=== PATIENT | female | born 1955 | race Hispanic/Latino ===

== ENCOUNTER 2019-08-30 12:36 | Emergency (ER) | payer MEDICARE ==
[2019-08-30] MEDS ORDERED: ASPIRIN 325 MG TABLET ONE (13:34)
[2019-08-30 13:54] LABS: APPEARANCE,URINE Clear (CLEAR); BILIRUBIN,URINE Negative (NEGATIVE); COLOR,URINE Yellow (YELLOW); GLUCOSE, URINE (UA) Negative (NEGATIVE); KETONES,URINE 15 mg/dL (NEGATIVE); LEUKOCYTE ESTERASE ,URINE Trace (NEGATIVE); NITRATE,URINE Negative (NEGATIVE); OCCULT BLOOD,URINE Nonhemolyzed Trace (NEGATIVE); PH,URINE 6.5 (5.0-8.0); PROTEIN,URINE Negative (NEGATIVE); UROBILINOGEN,URINE 0.2 mg/dL (0.2-1.0)
[2019-08-30 13:54] LABS: BASOPHILS % (AUTO) 0.2 % (0.0-5.0); EOSINOPHILS % (AUTO) 0.5 % (0.0-8.0); LYMPHOCYTES % (AUTO) 16.5 % (21.0-51.0); MEAN CORPUSCULAR HEMOGLOBIN 30.1 pg (27.0-33.0); MEAN CORPUSCULAR HGB CONC 34.1 g/dL (32.0-36.0); MEAN CORPUSCULAR VOLUME 88.2 fL (79-99); MONOCYTES % (AUTO) 6.7 % (3.0-13.0); NEUTROPHILS % (AUTO) 75.8 % (40.0-77.0); PLATELET COUNT (AUTO) 218 K/uL (130-400); RED BLOOD CELL COUNT(AUTO) 4.42 MIL/uL (4.00-5.50); RED CELL DISTRIBUTION WIDTH 12.4 % (11.0-15.5); WHITE BLOOD COUNT (AUTO) 6.4 K/uL (4.8-10.8)
[2019-08-30 14:01] LABS: CREATININE 0.4 mg/dL (0.5-1.5); POTASSIUM 4.3 mmol/L (3.5-5.1)
[2019-08-30 14:06] LABS: INR 0.95 (0.85-1.15); PARTIAL THROMBOPLASTIN TIME 24.4 SEC (26.3-35.5)
[2019-08-30 14:07] LABS: ALBUMIN 3.7 g/dL (3.5-5.0); BILIRUBIN,TOTAL 0.6 mg/dL (0.2-1.0); TOTAL PROTEIN, SERUM 7.2 g/dL (6.0-8.3)
[2019-08-30 14:17] LABS: BACTERIA,URINE Few /HPF (None Seen); MUCUS,URINE Few LPF (None Seen); SQUAMOUS EPITHELIAL CELL,UR Few /HPF (0-2)
[2019-08-30] MEDS ORDERED: SUCRALFATE 1 GM TABLET ONE (14:53)
[2019-08-30] MEDS ORDERED: FAMOTIDINE 20MG TAB 20 MG TAB ONE (14:53)
[2019-08-30] MEDS ORDERED: MAG HYDROX/AL HYDROX/SIMETH ES 30 ML SUSP UDCUP ONE (15:36)
[2019-08-30] MEDS ORDERED: LIDOCAINE HCL 2% VISCOUS 15 ML UDCUP ONE (15:36)
== END 2019-08-30 16:13 | disposition home or self-care (01) ==
LOC: EDH 12:36
DX: K29.70 Gastritis, unspecified, without bleeding (principal); E11.9 Type 2 diabetes mellitus without complications; I10 Essential (primary) hypertension; Z98.890 Other specified postprocedural states
CPT/HCPCS: 36415; 71045; 80053; 81001; 82550; 83690; 84484; 85025; 85610; 85730; 93005

== ENCOUNTER 2023-06-01 21:05 | Inpatient (IN) | payer MEDICARE, OTHER ==
[~2023-06-01] VITALS: Ht 154.9 cm; Wt 80.6 kg
[2023-06-01 21:36] LABS: BASOPHILS # (AUTO) 0.01 K/uL (0.00-0.20); BASOPHILS % (AUTO) 0.1 % (0.0-5.0); EOSINOPHILS # (AUTO) 0.13 K/uL (0.00-0.70); EOSINOPHILS % (AUTO) 1.8 % (0.0-8.0); HEMATOCRIT 38.6 % (36-48); IMMATURE GRANULOCYTE ABSOLUTE 0.03 K/uL (0-1); LYMPHOCYTES # (AUTO) 1.8 K/uL (1.0-4.8); LYMPHOCYTES % (AUTO) 24.9 % (21.0-51.0); MEAN CORPUSCULAR HEMOGLOBIN 30.1 pg (27.0-33.0); MEAN CORPUSCULAR HGB CONC 32.9 g/dL (32.0-36.0); MEAN CORPUSCULAR VOLUME 91.5 fL (79-99); MONOCYTES # (AUTO) 0.8 K/uL (0.1-1.0); MONOCYTES % (AUTO) 10.4 % (3.0-13.0); NEUTROPHILS # (AUTO) 4.5 K/uL (1.8-7.7); NEUTROPHILS % (AUTO) 62.4 % (40.0-77.0); PLATELET COUNT (AUTO) 391 K/uL (130-400); RED BLOOD CELL COUNT(AUTO) 4.22 MIL/uL (4.00-5.50); WHITE BLOOD COUNT (AUTO) 7.2 K/uL (4.8-10.8)
[2023-06-01 21:41] LABS: APPEARANCE,URINE CLEAR (CLEAR); BILIRUBIN,URINE NEGATIVE (NEGATIVE); COLOR,URINE YELLOW (YELLOW); GLUCOSE, URINE (UA) NEGATIVE (NEGATIVE); KETONES,URINE NEGATIVE (NEGATIVE); LEUKOCYTE ESTERASE ,URINE TRACE Leu/uL (NEGATIVE); NITRATE,URINE NEGATIVE (NEGATIVE); OCCULT BLOOD,URINE TRACE-INTACT (NEGATIVE); PROTEIN,URINE 30 mg/dL (NEGATIVE); UROBILINOGEN,URINE 0.2 mg/dL (0.2-1.0)
[2023-06-01 21:51] LABS: CREATININE 0.8 mg/dL (0.5-1.5); POTASSIUM 3.9 mmol/L (3.5-5.1)
[2023-06-01 21:52] LABS: SARS-CoV-2, RNA, NAAT NEGATIVE SARS CoV-2 (NEGATIVE)
[2023-06-01 21:52] LABS: ADD UA MICROSCOPIC YES
[2023-06-01 21:53] LABS: BACTERIA,URINE MOD /HPF (None Seen); MUCUS,URINE MANY LPF (None Seen); SQUAMOUS EPITHELIAL CELL,UR FEW /HPF (0-2); WBC,URINE 51-100 /HPF (0-1)
[2023-06-01 21:56] LABS: INFLUENZA TYPE A Negative For Type A (NEGATIVE); INFLUENZA TYPE B Negative For Type B (NEGATIVE)
[2023-06-01 22:00] LABS: ALBUMIN 2.7 g/dL (3.5-5.0); BILIRUBIN,TOTAL 0.3 mg/dL (0.2-1.0); TOTAL PROTEIN, SERUM 6.4 g/dL (6.0-8.3)
[2023-06-01] MEDS ORDERED: IOHEXOL 350 MG/ML 100ML INFUS..BTL IV ONE (22:11)
[2023-06-01 22:13] LABS: B-TYPE NATRIURETIC PEPTIDE 8 pg/mL (0-100)
[2023-06-01] MEDS ORDERED: CEFTRIAXONE 1G VIAL ONE (22:22)
[2023-06-01] MEDS ORDERED: CEFTRIAXONE 1G VIAL IVPB ONE (22:30)
[2023-06-02] MEDS ORDERED: GLUCAGON 1MG KIT 1 MG ML IM PRN (02:30)
[2023-06-02] MEDS ORDERED: MAGNESIUM 2GM PREMIX 50ML 50 ML IV PRN (02:30)
[2023-06-02] MEDS: CEFTRIAXONE 1G VIAL IVPB SCH (02:30)
[2023-06-02] MEDS ORDERED: POTASSIUM CHLORIDE 20MEQ/100ML 100 ML IV PRN (02:30)
[2023-06-02] MEDS ORDERED: DEXTROSE 50%-WATER 50 ML DISP.SYRIN IV PRN (02:30)
[2023-06-02] MEDS ORDERED: ONDANSETRON 4MG INJ IV PRN (02:30)
[2023-06-02] MEDS ORDERED: LACTATED RINGERS 1000ML 1,000 ML IV SCH (02:30)
[2023-06-02] MEDS ORDERED: ACETAMINOPHEN 325 MG TAB PO PRN ×2 (02:30)
[2023-06-02] MEDS: INSULIN HUMULIN R 100 UNIT/ML 3ML SQ SCH ×4 (07:30→21:00)
[2023-06-02 07:56] LABS: BASOPHILS # (AUTO) 0.02 K/uL (0.00-0.20); BASOPHILS % (AUTO) 0.3 % (0.0-5.0); EOSINOPHILS # (AUTO) 0.08 K/uL (0.00-0.70); EOSINOPHILS % (AUTO) 1.2 % (0.0-8.0); HEMATOCRIT 38.7 % (36-48); IMMATURE GRANULOCYTE ABSOLUTE 0.03 K/uL (0-1); LYMPHOCYTES # (AUTO) 1.5 K/uL (1.0-4.8); LYMPHOCYTES % (AUTO) 21.8 % (21.0-51.0); MEAN CORPUSCULAR HEMOGLOBIN 29.8 pg (27.0-33.0); MEAN CORPUSCULAR HGB CONC 32.3 g/dL (32.0-36.0); MEAN CORPUSCULAR VOLUME 92.4 fL (79-99); MONOCYTES # (AUTO) 0.7 K/uL (0.1-1.0); MONOCYTES % (AUTO) 10.8 % (3.0-13.0); NEUTROPHILS # (AUTO) 4.4 K/uL (1.8-7.7); NEUTROPHILS % (AUTO) 65.4 % (40.0-77.0); PLATELET COUNT (AUTO) 386 K/uL (130-400); RED BLOOD CELL COUNT(AUTO) 4.19 MIL/uL (4.00-5.50); RED CELL DISTRIBUTION WIDTH 13.1 % (11.0-15.5); WHITE BLOOD COUNT (AUTO) 6.7 K/uL (4.8-10.8)
[2023-06-02 08:11] LABS: INR < 0.93 (0.85-1.15); PROTHROMBIN TIME 10.8 SEC (9.6-11.6)
[2023-06-02 08:12] LABS: PARTIAL THROMBOPLASTIN TIME 26.2 SEC (26.3-35.5)
[2023-06-02 08:14] LABS: ALBUMIN 2.6 g/dL (3.5-5.0); BILIRUBIN,DIRECT 0.1 mg/dL (0.0-0.3); BILIRUBIN,TOTAL 0.3 mg/dL (0.2-1.0); CREATININE 0.7 mg/dL (0.5-1.5); MAGNESIUM 1.8 mg/dL (1.80-2.40); POTASSIUM 4.5 mmol/L (3.5-5.1); TOTAL PROTEIN, SERUM 6.3 g/dL (6.0-8.3)
[2023-06-02] MEDS: FAMOTIDINE 20MG VIAL IV SCH ×2 (10:18→23:29)
[2023-06-02] MEDS ORDERED: MAGNESIUM 2GM PREMIX 50ML 50 ML IV SCH (11:00)
[2023-06-02] MEDS: FUROSEMIDE 20MG VIAL IV SCH ×2 (13:55→23:40)
[2023-06-02] MEDS ORDERED: LOSARTAN 50 MG TABLET PO SCH (16:00)
[2023-06-02] MEDS ORDERED: DICL50TA7 PO (16:43)
[2023-06-02] MEDS ORDERED: ATOR10 PO (16:43)
[2023-06-02] MEDS ORDERED: METF-444 PO (16:48)
[2023-06-02] MEDS ORDERED: OLME-9 PO (16:48)
[2023-06-02] MEDS ORDERED: HYDRALAZINE 20MG/ML VIAL IV PRN (19:00)
[2023-06-02 19:55] LABS: CREATININE 0.8 mg/dL (0.5-1.5); MAGNESIUM 1.8 mg/dL (1.80-2.40); POTASSIUM 4.1 mmol/L (3.5-5.1)
[2023-06-02] MEDS: ATORVASTATIN 10 MG TABLET PO SCH (23:29)
[2023-06-03] VITALS (14 sets, daily range): BP systolic 83–128; BP diastolic 45–78; PULSE 90–109; RESP 18–20; O2SAT 94–97
[2023-06-03] MEDS: CEFTRIAXONE 1G VIAL IVPB SCH (04:11)
[2023-06-03] MEDS: INSULIN HUMULIN R 100 UNIT/ML 3ML SQ SCH ×4 (07:28→20:34)
[2023-06-03] MEDS: FAMOTIDINE 20MG VIAL IV SCH ×2 (08:44→20:33)
[2023-06-03] MEDS ORDERED: HYDROCHLOROTHIAZIDE 25 MG TABLET PO SCH (09:00)
[2023-06-03] MEDS ORDERED: LOSARTAN 100 MG TABLET PO SCH (09:00)
[2023-06-03 09:50] LABS: BASOPHILS # (AUTO) 0.02 K/uL (0.00-0.20); BASOPHILS % (AUTO) 0.3 % (0.0-5.0); EOSINOPHILS # (AUTO) 0.06 K/uL (0.00-0.70); HEMATOCRIT 39.2 % (36-48); IMMATURE GRANULOCYTE ABSOLUTE 0.01 K/uL (0-1); LYMPHOCYTES # (AUTO) 1.2 K/uL (1.0-4.8); LYMPHOCYTES % (AUTO) 19.9 % (21.0-51.0); MEAN CORPUSCULAR HGB CONC 32.9 g/dL (32.0-36.0); MEAN CORPUSCULAR VOLUME 91.2 fL (79-99); MONOCYTES # (AUTO) 0.6 K/uL (0.1-1.0); MONOCYTES % (AUTO) 9.1 % (3.0-13.0); NEUTROPHILS # (AUTO) 4.3 K/uL (1.8-7.7); NEUTROPHILS % (AUTO) 69.5 % (40.0-77.0); PLATELET COUNT (AUTO) 464 K/uL (130-400); RED CELL DISTRIBUTION WIDTH 13.2 % (11.0-15.5); WHITE BLOOD COUNT (AUTO) 6.2 K/uL (4.8-10.8)
[2023-06-03 10:02] LABS: INR 0.97 (0.85-1.15); PROTHROMBIN TIME 11.3 SEC (9.6-11.6)
[2023-06-03 10:04] LABS: PARTIAL THROMBOPLASTIN TIME 27.1 SEC (26.3-35.5)
[2023-06-03 10:06] LABS: ALBUMIN 2.7 g/dL (3.5-5.0); BILIRUBIN,TOTAL 0.5 mg/dL (0.2-1.0); CREATININE 0.9 mg/dL (0.5-1.5); MAGNESIUM 1.8 mg/dL (1.80-2.40); POTASSIUM 4.1 mmol/L (3.5-5.1); TOTAL PROTEIN, SERUM 6.3 g/dL (6.0-8.3)
[2023-06-03] MEDS ORDERED: HYDROMORPHONE PCA 10 MG/50 ML 50 ML IV PRN (11:00)
[2023-06-03] MEDS ORDERED: DiphenhydrAMINE HCL 50 MG/ML VIAL IM PRN (11:00)
[2023-06-03] MEDS ORDERED: DIPHENOXYLATE HCL/ATROPINE 2.5/0.025 MG TAB PO PRN (11:00)
[2023-06-03] MEDS ORDERED: MAG/ALUM/SIMETH 30 ML UDCUP PO PRN (11:00)
[2023-06-03] MEDS ORDERED: DIPHENHYDRAMINE HCL 25 MG CAPSULE PO SCH (11:00)
[2023-06-03] MEDS ORDERED: ACETAMINOPHEN 325 MG TAB PO PRN ×2 (11:00)
[2023-06-03] MEDS ORDERED: LACTULOSE 20 GM/30 ML UDCUP PO PRN (11:00)
[2023-06-03] MEDS ORDERED: ACETAMINOPHEN 325 MG TAB PO SCH (11:00)
[2023-06-03] MEDS ORDERED: BENZOCAINE/MENTH/CETYLPYRD CL 1 EACH LOZENGE MM PRN (11:00)
[2023-06-03] MEDS ORDERED: DIPHENHYDRAMINE HCL 25 MG CAPSULE PO PRN (11:00)
[2023-06-03] MEDS ORDERED: ONDANSETRON 4MG INJ IVP PRN (11:00)
[2023-06-03] MEDS ORDERED: TRAMADOL HCL 50 MG TABLET PO PRN (11:00)
[2023-06-03 12:25] LABS: ALBUMIN,BODY FLUID 2.3 g/dL; AMYLASE,BODY FLUID 22 U/L; TOTAL BILIRUBIN, BODY FLUID 0.9 mg/dL; TOTAL PROTEIN,BODY FLUID 4.1 g/dL; TRIGLYCERIDES,BODY FLUID 43 mg/dL
[2023-06-03 12:32] LABS: BODY FLUID RBC 21636 /cu. mm.; BODY FLUID WBC 551 /cu. mm.
[2023-06-03 13:06] LABS: APPEARANCE BODY FLUID TURBID (CLEAR); COLOR,BODY FLUID ORANGE (LT YELLOW); SPECIMENTYPE,BODY FLUID ASCITES; TOTAL VOLUME,BODY FLUID 1500 mL
[2023-06-03 13:18] LABS: BF LYMPHOCYTE 28 %; BF MACROPHAGE 40; BF OTHER CELLS 12; BF TOTAL CELLS COUNTED 100
[2023-06-03] MEDS ORDERED: WARFARIN SODIUM 1 MG TAB PO SCH (17:00)
[2023-06-03] MEDS: ATORVASTATIN 10 MG TABLET PO SCH (20:33)
[2023-06-03] MEDS ORDERED: MORPHINE 2 MG SYG IVP ONE (23:00)
[2023-06-04] VITALS (82 sets, daily range): BP systolic 76–131; BP diastolic 39–85; PULSE 77–103; RESP 10–40; O2SAT 94–97
[2023-06-04] MEDS: CEFTRIAXONE 2GM VIAL IVPB SCH ×2 (03:50→23:34)
[2023-06-04] MEDS: NOREPINEPHRIN 4MG/NS 250ML 250 ML IV SCH ×2 (03:53→13:03)
[2023-06-04 05:46] LABS: BASOPHILS # (AUTO) 0.01 K/uL (0.00-0.20); BASOPHILS % (AUTO) 0.2 % (0.0-5.0); EOSINOPHILS # (AUTO) 0.07 K/uL (0.00-0.70); EOSINOPHILS % (AUTO) 1.2 % (0.0-8.0); HEMATOCRIT 32.8 % (36-48); IMMATURE GRANULOCYTE ABSOLUTE 0.02 K/uL (0-1); LYMPHOCYTES # (AUTO) 1.3 K/uL (1.0-4.8); MEAN CORPUSCULAR HEMOGLOBIN 30.3 pg (27.0-33.0); MEAN CORPUSCULAR HGB CONC 32.9 g/dL (32.0-36.0); MEAN CORPUSCULAR VOLUME 91.9 fL (79-99); MONOCYTES # (AUTO) 0.6 K/uL (0.1-1.0); MONOCYTES % (AUTO) 10.1 % (3.0-13.0); NEUTROPHILS # (AUTO) 3.7 K/uL (1.8-7.7); NEUTROPHILS % (AUTO) 65.2 % (40.0-77.0); PLATELET COUNT (AUTO) 391 K/uL (130-400); RED BLOOD CELL COUNT(AUTO) 3.57 MIL/uL (4.00-5.50); WHITE BLOOD COUNT (AUTO) 5.7 K/uL (4.8-10.8)
[2023-06-04 05:52] LABS: CREATININE 0.9 mg/dL (0.5-1.5); MAGNESIUM 2.1 mg/dL (1.80-2.40); POTASSIUM 3.9 mmol/L (3.5-5.1)
[2023-06-04] MEDS: INSULIN HUMULIN R 100 UNIT/ML 3ML SQ SCH ×4 (06:17→21:00)
[2023-06-04] MEDS ORDERED: ACETAMINOPHEN 325 MG TAB ONE (06:41)
[2023-06-04] MEDS: ACETAMINOPHEN 325 MG TAB PO PRN ×2 (07:16→23:33)
[2023-06-04] MEDS: FAMOTIDINE 20MG VIAL IV SCH ×2 (08:16→20:42)
[2023-06-04 11:43] LABS: INR 0.94 (0.85-1.15); PROTHROMBIN TIME 10.9 SEC (9.6-11.6)
[2023-06-04 13:34] LABS: ABG BASE EXCESS -0.5 mmol/L (-2.0-3.0); ABG HCO3 22.7 mmol/L (21.0-28.0); ABG PCO2 33 mmHg (32-45); ABG PH 7.456 (7.35-7.450); CARBON MONOXIDE 0.7; DEVICE COMMENT RR, BRIZA,RN; PO2, ARTERIAL BG 90.5 mmHg (83.0-108.0); VENT MODE, BG RA (ROOM AIR)
[2023-06-04] MEDS: ALBUMIN (HUMAN) 25% 200 ML IV SCH ×2 (15:09→20:42)
[2023-06-04] MEDS: ATORVASTATIN 10 MG TABLET PO SCH (20:42)
[2023-06-05] VITALS (10 sets, daily range): BP systolic 93–109; BP diastolic 53–67; PULSE 83–99; RESP 13–23; O2SAT 95–96
[2023-06-05 04:12] LABS: BASOPHILS # (AUTO) 0.01 K/uL (0.00-0.20); BASOPHILS % (AUTO) 0.2 % (0.0-5.0); EOSINOPHILS # (AUTO) 0.09 K/uL (0.00-0.70); EOSINOPHILS % (AUTO) 2.2 % (0.0-8.0); HEMATOCRIT 28.5 % (36-48); IMMATURE GRANULOCYTE ABSOLUTE 0.01 K/uL (0-1); LYMPHOCYTES # (AUTO) 0.9 K/uL (1.0-4.8); LYMPHOCYTES % (AUTO) 22.4 % (21.0-51.0); MEAN CORPUSCULAR HEMOGLOBIN 30.1 pg (27.0-33.0); MEAN CORPUSCULAR HGB CONC 32.6 g/dL (32.0-36.0); MEAN CORPUSCULAR VOLUME 92.2 fL (79-99); MONOCYTES # (AUTO) 0.5 K/uL (0.1-1.0); NEUTROPHILS # (AUTO) 2.6 K/uL (1.8-7.7); PLATELET COUNT (AUTO) 282 K/uL (130-400); RED BLOOD CELL COUNT(AUTO) 3.09 MIL/uL (4.00-5.50); RED CELL DISTRIBUTION WIDTH 13.1 % (11.0-15.5); WHITE BLOOD COUNT (AUTO) 4.2 K/uL (4.8-10.8)
[2023-06-05 04:18] LABS: CREATININE 0.8 mg/dL (0.5-1.5); MAGNESIUM 2.1 mg/dL (1.80-2.40); POTASSIUM 3.5 mmol/L (3.5-5.1)
[2023-06-05] MEDS ORDERED: POTASSIUM CHLORIDE 10% ELIXIR 20 MEQ/15 ML UDCUP PO PRN ×2 (06:30→07:30)
[2023-06-05] MEDS ORDERED: KCL 20 MEQ ERTAB PO PRN ×2 (06:30→07:30)
[2023-06-05] MEDS: INSULIN HUMULIN R 100 UNIT/ML 3ML SQ SCH ×4 (06:48→21:00)
[2023-06-05] MEDS ORDERED: POTASSIUM CHLORIDE 20MEQ/100ML 100 ML IV PRN (07:30)
[2023-06-05] MEDS: FAMOTIDINE 20MG VIAL IV SCH ×2 (09:10→21:01)
[2023-06-05] MEDS: ACETAMINOPHEN 325 MG TAB PO PRN (16:10)
[2023-06-05] MEDS: ATORVASTATIN 10 MG TABLET PO SCH (21:01)
[2023-06-06] VITALS (10 sets, daily range): BP systolic 86–133; BP diastolic 49–73; PULSE 90–104; RESP 14–18; O2SAT 95–96
[2023-06-06] MEDS: CEFTRIAXONE 2GM VIAL IVPB SCH (01:54)
[2023-06-06 05:17] LABS: HEMATOCRIT 34.9 % (36-48); MEAN CORPUSCULAR HEMOGLOBIN 30.2 pg (27.0-33.0); MEAN CORPUSCULAR HGB CONC 32.1 g/dL (32.0-36.0); MEAN CORPUSCULAR VOLUME 94.1 fL (79-99); RED BLOOD CELL COUNT(AUTO) 3.71 MIL/uL (4.00-5.50); WHITE BLOOD COUNT (AUTO) 6.5 K/uL (4.8-10.8)
[2023-06-06 05:31] LABS: ALBUMIN 3.1 g/dL (3.5-5.0); BILIRUBIN,TOTAL 0.5 mg/dL (0.2-1.0); CREATININE 0.8 mg/dL (0.5-1.5); MAGNESIUM 2.1 mg/dL (1.80-2.40); TOTAL PROTEIN, SERUM 5.9 g/dL (6.0-8.3)
[2023-06-06] MEDS: INSULIN HUMULIN R 100 UNIT/ML 3ML SQ SCH ×4 (05:52→21:13)
[2023-06-06] MEDS: FAMOTIDINE 20MG VIAL IV SCH ×2 (08:20→21:11)
[2023-06-06] MEDS: ACETAMINOPHEN 325 MG TAB PO PRN ×2 (14:25→21:12)
[2023-06-06] MEDS: ATORVASTATIN 10 MG TABLET PO SCH (21:11)
[2023-06-07] MEDS: CEFTRIAXONE 2GM VIAL IVPB SCH (00:27)
[2023-06-07 00:35] VITALS: BP 93/65; PULSE 91; RESP 18
[2023-06-07 03:58] VITALS: BP 107/62; PULSE 92; RESP 17
[2023-06-07 05:24] LABS: BASOPHILS # (AUTO) 0.01 K/uL (0.00-0.20); BASOPHILS % (AUTO) 0.1 % (0.0-5.0); EOSINOPHILS % (AUTO) 1.4 % (0.0-8.0); HEMATOCRIT 35.2 % (36-48); IMMATURE GRANULOCYTE ABSOLUTE 0.03 K/uL (0-1); LYMPHOCYTES # (AUTO) 1.4 K/uL (1.0-4.8); LYMPHOCYTES % (AUTO) 19.7 % (21.0-51.0); MEAN CORPUSCULAR HEMOGLOBIN 30.2 pg (27.0-33.0); MEAN CORPUSCULAR HGB CONC 31.8 g/dL (32.0-36.0); MEAN CORPUSCULAR VOLUME 94.9 fL (79-99); MONOCYTES # (AUTO) 0.7 K/uL (0.1-1.0); MONOCYTES % (AUTO) 10.5 % (3.0-13.0); NEUTROPHILS # (AUTO) 4.8 K/uL (1.8-7.7); NEUTROPHILS % (AUTO) 67.9 % (40.0-77.0); PLATELET COUNT (AUTO) 388 K/uL (130-400); RED BLOOD CELL COUNT(AUTO) 3.71 MIL/uL (4.00-5.50); WHITE BLOOD COUNT (AUTO) 7.1 K/uL (4.8-10.8)
[2023-06-07] MEDS: INSULIN HUMULIN R 100 UNIT/ML 3ML SQ SCH ×4 (05:56→21:35)
[2023-06-07 06:11] LABS: BILIRUBIN,TOTAL 0.4 mg/dL (0.2-1.0); CREATININE 1.4 mg/dL (0.5-1.5); MAGNESIUM 2.1 mg/dL (1.80-2.40); PHOSPHORUS 4.3 mg/dL (2.5-4.9)
[2023-06-07 08:00] VITALS: BP 96/63; PULSE 97; RESP 20; O2SAT 98
[2023-06-07] MEDS: ACETAMINOPHEN 325 MG TAB PO PRN (09:06)
[2023-06-07] MEDS: FAMOTIDINE 20MG TAB PO SCH ×2 (09:06→19:44)
[2023-06-07] MEDS: LEVOFLOXACIN 500 MG TABLET PO SCH (09:07)
[2023-06-07 12:00] VITALS: BP 105/69; PULSE 101; RESP 20
[2023-06-07] MEDS ORDERED: LACTULOSE 20 GM/30 ML UDCUP PO PRN (14:30)
[2023-06-07 15:17] LABS: MEAN CORPUSCULAR HEMOGLOBIN 29.8 pg (27.0-33.0); MEAN CORPUSCULAR VOLUME 93.1 fL (79-99); RED BLOOD CELL COUNT(AUTO) 3.76 MIL/uL (4.00-5.50); RED CELL DISTRIBUTION WIDTH 13.1 % (11.0-15.5); WHITE BLOOD COUNT (AUTO) 6.8 K/uL (4.8-10.8)
[2023-06-07] MEDS: FUROSEMIDE 20MG VIAL IV SCH (15:32)
[2023-06-07 16:00] VITALS: BP 100/64; PULSE 104; RESP 20
[2023-06-07] MEDS: DOCUSATE SODIUM 100 MG CAP PO SCH (19:44)
[2023-06-07] MEDS: ATORVASTATIN 10 MG TABLET PO SCH (19:44)
[2023-06-07 20:00] VITALS: BP 114/52; PULSE 117; RESP 20
[2023-06-08] VITALS (7 sets, daily range): BP systolic 90–118; BP diastolic 50–65; PULSE 95–109; RESP 16–20; O2SAT 98
[2023-06-08] MEDS: CEFTRIAXONE 2GM VIAL IVPB SCH (00:54)
[2023-06-08] MEDS: FUROSEMIDE 20MG VIAL IV SCH ×2 (01:32→14:36)
[2023-06-08 04:53] LABS: ALBUMIN 2.7 g/dL (3.5-5.0); BILIRUBIN,TOTAL 0.2 mg/dL (0.2-1.0); CREATININE 1.8 mg/dL (0.5-1.5); MAGNESIUM 2.1 mg/dL (1.80-2.40); POTASSIUM 4.4 mmol/L (3.5-5.1); TOTAL PROTEIN, SERUM 6.1 g/dL (6.0-8.3)
[2023-06-08] MEDS: INSULIN HUMULIN R 100 UNIT/ML 3ML SQ SCH ×3 (06:52→20:53)
[2023-06-08] MEDS: DOCUSATE SODIUM 100 MG CAP PO SCH ×2 (09:00→20:56)
[2023-06-08] MEDS: FAMOTIDINE 20MG TAB PO SCH ×2 (09:00→20:56)
[2023-06-08] MEDS: LEVOFLOXACIN 500 MG TABLET PO SCH (09:00)
[2023-06-08] MEDS ORDERED: BISACODYL 10 MG SUPP.RECT RC ONE (10:00)
[2023-06-08] MEDS: ACETAMINOPHEN 325 MG TAB PO PRN (13:37)
[2023-06-08] MEDS: ATORVASTATIN 10 MG TABLET PO SCH (20:56)
[2023-06-09] VITALS (7 sets, daily range): BP systolic 88–107; BP diastolic 51–77; PULSE 95–112; RESP 17–20; O2SAT 95
[2023-06-09] MEDS: CEFTRIAXONE 2GM VIAL IVPB SCH ×2 (00:07→23:55)
[2023-06-09] MEDS: FUROSEMIDE 20MG VIAL IV SCH ×2 (00:44→14:26)
[2023-06-09] MEDS: INSULIN HUMULIN R 100 UNIT/ML 3ML SQ SCH ×4 (06:45→21:00)
[2023-06-09] MEDS: DOCUSATE SODIUM 100 MG CAP PO SCH ×2 (09:07→20:17)
[2023-06-09] MEDS: FAMOTIDINE 20MG TAB PO SCH ×2 (09:08→20:17)
[2023-06-09] MEDS: LEVOFLOXACIN 500 MG TABLET PO SCH (09:08)
[2023-06-09 11:01] LABS: HEMATOCRIT 36.3 % (36-48); MEAN CORPUSCULAR HEMOGLOBIN 29.9 pg (27.0-33.0); MEAN CORPUSCULAR HGB CONC 32.5 g/dL (32.0-36.0); MEAN CORPUSCULAR VOLUME 92.1 fL (79-99); RED BLOOD CELL COUNT(AUTO) 3.94 MIL/uL (4.00-5.50); RED CELL DISTRIBUTION WIDTH 13.1 % (11.0-15.5); WHITE BLOOD COUNT (AUTO) 7.2 K/uL (4.8-10.8)
[2023-06-09 11:12] LABS: CREATININE 2.2 mg/dL (0.5-1.5); POTASSIUM 4.2 mmol/L (3.5-5.1)
[2023-06-09] MEDS: MIDODRINE HCL 5 MG TABLET PO SCH ×2 (14:26→20:17)
[2023-06-09] MEDS: ATORVASTATIN 10 MG TABLET PO SCH (20:17)
[2023-06-09 23:00] LABS: COLLECTION PERIOD,URINE 24 HR; CREATININE,SERUM FOR CRCL 2.2 mg/dL (0.6-1.3); TOTAL VOLUME 24HRS,URINE 140 mL
[2023-06-09 23:01] LABS: TPROTEIN TIMED,URINE 53 mg/dL; TPROTEIN U,24HR CALC 74 mg/24HR (0-165)
[2023-06-09 23:02] LABS: CREATININE,URINE RANDOM 346 mg/dL (30-135); SODIUM,URINE RANDOM < 14 mmol/l (40-220)
[2023-06-10] VITALS (16 sets, daily range): BP systolic 83–102; BP diastolic 48–66; PULSE 83–105; RESP 16–19; O2SAT 93–94
[2023-06-10] MEDS: FUROSEMIDE 20MG VIAL IV SCH (02:03)
[2023-06-10 04:58] LABS: HEMATOCRIT 34.1 % (36-48); MEAN CORPUSCULAR VOLUME 93.9 fL (79-99); RED BLOOD CELL COUNT(AUTO) 3.63 MIL/uL (4.00-5.50); WHITE BLOOD COUNT (AUTO) 7.5 K/uL (4.8-10.8)
[2023-06-10 05:12] LABS: CREATININE 2.4 mg/dL (0.5-1.5); POTASSIUM 4.9 mmol/L (3.5-5.1)
[2023-06-10] MEDS: INSULIN HUMULIN R 100 UNIT/ML 3ML SQ SCH ×4 (06:32→20:20)
[2023-06-10] MEDS: FAMOTIDINE 20MG TAB PO SCH ×2 (09:00→20:20)
[2023-06-10] MEDS: DOCUSATE SODIUM 100 MG CAP PO SCH ×2 (09:00→20:20)
[2023-06-10] MEDS ORDERED: ALBUMIN (HUMAN) 25% 200 ML IV SCH (10:00)
[2023-06-10] MEDS: LEVOFLOXACIN 500 MG TABLET PO SCH (11:25)
[2023-06-10 14:37] LABS: SPECIMENTYPE,BODY FLUID ASCITES
[2023-06-10 14:38] LABS: APPEARANCE BODY FLUID CLOUDY (CLEAR); COLOR,BODY FLUID ORANGE (LT YELLOW); TOTAL VOLUME,BODY FLUID 4300 mL
[2023-06-10 14:55] LABS: BODY FLUID RBC 23682 /cu. mm.; BODY FLUID WBC 683 /cu. mm.
[2023-06-10] MEDS: MIDODRINE HCL 5 MG TABLET PO SCH ×2 (15:17→20:20)
[2023-06-10 15:48] LABS: BF LYMPHOCYTE 18 %; BF MACROPHAGE 50; BF MONOCYTE 1 %; BF OTHER CELLS 18; BF TOTAL CELLS COUNTED 100
[2023-06-10] MEDS: ATORVASTATIN 10 MG TABLET PO SCH (20:19)
[2023-06-11] MEDS: CEFTRIAXONE 2GM VIAL IVPB SCH (00:22)
[2023-06-11 03:00] VITALS: BP 103/57; PULSE 89; RESP 18
[2023-06-11] MEDS: INSULIN HUMULIN R 100 UNIT/ML 3ML SQ SCH ×2 (05:47→11:30)
[2023-06-11 06:49] LABS: BASOPHILS # (AUTO) 0.02 K/uL (0.00-0.20); BASOPHILS % (AUTO) 0.3 % (0.0-5.0); EOSINOPHILS # (AUTO) 0.08 K/uL (0.00-0.70); EOSINOPHILS % (AUTO) 1.1 % (0.0-8.0); HEMATOCRIT 31.1 % (36-48); IMMATURE GRANULOCYTE ABSOLUTE 0.05 K/uL (0-1); LYMPHOCYTES # (AUTO) 0.8 K/uL (1.0-4.8); LYMPHOCYTES % (AUTO) 11.3 % (21.0-51.0); MEAN CORPUSCULAR HEMOGLOBIN 30.5 pg (27.0-33.0); MEAN CORPUSCULAR HGB CONC 32.2 g/dL (32.0-36.0); MEAN CORPUSCULAR VOLUME 94.8 fL (79-99); MONOCYTES # (AUTO) 0.8 K/uL (0.1-1.0); NEUTROPHILS # (AUTO) 5.7 K/uL (1.8-7.7); NEUTROPHILS % (AUTO) 75.6 % (40.0-77.0); PLATELET COUNT (AUTO) 370 K/uL (130-400); RED BLOOD CELL COUNT(AUTO) 3.28 MIL/uL (4.00-5.50); RED CELL DISTRIBUTION WIDTH 13.2 % (11.0-15.5); WHITE BLOOD COUNT (AUTO) 7.5 K/uL (4.8-10.8)
[2023-06-11 07:01] LABS: ALBUMIN 2.6 g/dL (3.5-5.0); BILIRUBIN,TOTAL 0.2 mg/dL (0.2-1.0); CREATININE 1.7 mg/dL (0.5-1.5); POTASSIUM 4.5 mmol/L (3.5-5.1); TOTAL PROTEIN, SERUM 5.4 g/dL (6.0-8.3)
[2023-06-11 07:37] VITALS: BP 95/55; PULSE 85; RESP 17
[2023-06-11 08:00] VITALS: O2SAT 94
[2023-06-11] MEDS: LEVOFLOXACIN 500 MG TABLET PO SCH (08:34)
[2023-06-11] MEDS: DOCUSATE SODIUM 100 MG CAP PO SCH (08:35)
[2023-06-11] MEDS: FAMOTIDINE 20MG TAB PO SCH (08:35)
[2023-06-11] MEDS: MIDODRINE HCL 5 MG TABLET PO SCH ×2 (08:35→14:22)
[2023-06-11 10:55] VITALS: BP 101/54; PULSE 87; RESP 17
== END 2023-06-11 15:45 | disposition home or self-care (01) | DRG 871 ==
LOC: EDH 21:05 → EDHIP 06-02 02:23 → 4DH 06-03 09:44 → 2CV 06-04 00:25 → 2BH 06-04 18:08 → 3BH 06-06 03:47
PROVIDERS: ADMIT Hospitalist; ATTEND Hospitalist
PROC: 0W9G30Z Drainage of Peritoneal Cavity with Drainage Device, Percutaneous Approach (ICD-10-PCS; principal; 2023-06-03)
PROC: 0W9G30Z Drainage of Peritoneal Cavity with Drainage Device, Percutaneous Approach (ICD-10-PCS; 2023-06-10)
DX: A41.9 Sepsis, unspecified organism (principal); I50.31 Acute diastolic (congestive) heart failure; R65.21 Severe sepsis with septic shock; R18.8 Other ascites; J98.11 Atelectasis; K76.6 Portal hypertension; N30.00 Acute cystitis without hematuria; N17.9 Acute kidney failure, unspecified; Z20.822 Contact with and (suspected) exposure to COVID-19; E11.65 Type 2 diabetes mellitus with hyperglycemia; K59.00 Constipation, unspecified; E66.9 Obesity, unspecified; I12.9 Hypertensive chronic kidney disease with stage 1 through stage 4 chronic kidney disease, or unspecified chronic kidney disease; E11.22 Type 2 diabetes mellitus with diabetic chronic kidney disease; C53.9 Malignant neoplasm of cervix uteri, unspecified; E78.00 Pure hypercholesterolemia, unspecified; K76.0 Fatty (change of) liver, not elsewhere classified; N18.9 Chronic kidney disease, unspecified; Z82.49 Family history of ischemic heart disease and other diseases of the circulatory system; Z83.3 Family history of diabetes mellitus; Z85.42 Personal history of malignant neoplasm of other parts of uterus; Z90.710 Acquired absence of both cervix and uterus; Z92.21 Personal history of antineoplastic chemotherapy; Z85.41 Personal history of malignant neoplasm of cervix uteri; Z68.33 Body mass index [BMI] 33.0-33.9, adult; Z92.3 Personal history of irradiation
CPT/HCPCS: 36415; 36600; 49083; 71045; 71270; 74018; 74177; 76700; 76705; 76770; 80048; 80053; 80076; 81001; 82042; 82150; 82247; 82378; 82435; 82570; 82575; 82607; 82728; 82746; 82803; 82947; 82948; 83036; 83605; 83615; 83690; 83735; 83880; 84100; 84132; 84145; 84156; 84157; 84295; 84300; 84443; 84478; 84484; 85018; 85025; 85027; 85610; 85730; 86304; 86316; 87040; 87071; 87088; 87205; 87635; 87804; 88108; 88305; 89051; 93005; 93306; 93970; C1729; C9803; G0378; J0696; J1815; J1940; J2405; J3475; J3480; J3490; P9046; Q9967